=== PATIENT | male | born 1965 | race African-American/Black ===

== ENCOUNTER 2017-09-20 15:53 | Emergency (ER) | payer OTHER ==
[~2017-09-20 15:53] MED LIST: CLIN1CAP6 PO; HYDR12.56 PO; NAPR40TA PO; ZOFR4TAB3 SL
[2017-09-20 16:54] VITALS: BP 181/99; PULSE 84; RESP 16; TEMP 97.4; O2SAT 97
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
[2017-09-20] MEDS ORDERED: KETOROLAC TROMETHAMINE 60 MG/2 ML (IM) VIAL IM ONE (18:30)
[2017-09-20] MEDS ORDERED: ROBA500T PO (18:36)
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
== END 2017-09-20 18:48 | disposition home or self-care (01) ==
LOC: NED 15:53 → NEPA 18:48
DX: S00.03XA Contusion of scalp, initial encounter (principal); M62.838 Other muscle spasm; M54.5 Low back pain; X58.XXXA Exposure to other specified factors, initial encounter
CPT/HCPCS: 70450; 96372; 99283; J1885